=== PATIENT | male | born 1940 | race Caucasian/White ===

== ENCOUNTER → 2018-03-30 09:00 | Outpatient (CLI) | payer MEDICARE, BC, SELFPAY ==
--- NOTE | 2018-03-30 | DI.RAD.S_ITS ---
PROCEDURE: XR CHEST 2V INDICATIONS: PNEUMONIA TECHNIQUE: 2 views of the chest were acquired. COMPARISON: None. FINDINGS: Surgical changes and devices: None. Lungs and pleura: No pleural effusions or pneumothorax. Lungs are clear. Mediastinum: Mediastinal contours are normal. Heart size is normal. Bones and chest wall: No suspicious bony abnormalities. Soft tissues appear unremarkable. IMPRESSION: Pectus excavatum chest wall morphology. This blurs the right cardiac margin and shifts the heart slightly leftward. No acute disease. No pneumonia found. Dictated by: Maximiliano Cristobal M.D. on 03/30/2018 at 10:08 Approved by: Maximiliano Cristobal M.D. on 03/30/2018 at 10:08
== END ==
PROVIDERS: Visit Provider Internal Medicine
DX: J18.9 Pneumonia, unspecified organism (principal)
CPT/HCPCS: 71046

== ENCOUNTER → 2020-06-08 08:28 | Outpatient (CLI) | payer MEDICARE, BC, SELFPAY ==
[2020-06-09 03:08] LABS: COVID19 Sendout Not Detected (Not Detect)
== END ==
PROVIDERS: Visit Provider Physician Assistant
DX: Z01.812 Encounter for preprocedural laboratory examination (principal)
CPT/HCPCS: 87635

== ENCOUNTER → 2020-07-12 11:14 | Outpatient (CLI) | payer MEDICARE, BC, SELFPAY ==
--- NOTE | 2020-07-12 | DI.RAD.S_ITS ---
PROCEDURE: XR HIP W PEL IF DONE LT 2V INDICATIONS: LEFT HIP PAIN TECHNIQUE: AP pelvis with lateral view(s) of the left hip(s). COMPARISON: [facility], , PELVIS W UNILATERAL HIP LEFT, 11/24/2012, 11:12. FINDINGS: Bones: No fracture . Moderate bilateral hip joint degeneration, with slight interval progression on the left since 11/24/12. Scattered degenerative subchondral sclerosis and spurring. Bulky marginal osteophyte formation resulting in decreased femoral head-neck step-off bilaterally. Soft tissues: The visualized bowel gas pattern is normal. No suspicious soft tissue calcifications. IMPRESSION: Slight interval progression of left hip joint degeneration as detailed above. Dictated by: Kam Emmanuel M.D. on 07/12/2020 at 12:59 Approved by: Kam Emmanuel M.D. on 07/12/2020 at 13:01
== END ==
PROVIDERS: PCP Internal Medicine; Referring Provider Internal Medicine; Visit Provider Internal Medicine
DX: M25.552 Pain in left hip (principal); M16.0 Bilateral primary osteoarthritis of hip
CPT/HCPCS: 73502

== ENCOUNTER → 2021-03-06 14:36 | Outpatient (ROUT) | payer MEDICARE, BC, SELFPAY ==
[2021-03-06 16:47] LABS: Aspartate Aminotransferase 31 IU/L (17-59); BUN Creatinine Ratio 24.7 (6-22); Blood Urea Nitrogen 22 mg/dL (9-20); Calcium 9.2 mg/dL (8.4-10.2); Carbon Dioxide 23 mmol/L (22-32); Chloride 108 mmol/L (98-107); Cholesterol 123 mg/dL (140-199); Estimated Glomerular Filt Rate > 60.0 mL/min (>60); Glucose 114 mg/dL (80-110); HDL Cholesterol 49 mg/dL (40-60); HEMOLYSIS < 15 (0-50); LDL Cholesterol Calculated 62 mg/dL (<100); Potassium 4.4 mmol/L (3.4-5.1); Sodium 140 mmol/L (137-145); Triglycerides 59 mg/dL (35-150)
== END ==
PROVIDERS: PCP Internal Medicine; Visit Provider Internal Medicine
DX: E78.2 Mixed hyperlipidemia (principal); I10 Essential (primary) hypertension
CPT/HCPCS: 80048; 80061; 84450

== ENCOUNTER → 2022-12-31 15:03 | Outpatient (CLI) | payer MEDICARE, BC, OTHER, SELFPAY ==
--- NOTE | 2022-12-31 | DI.RAD.S_ITS ---
PROCEDURE: XR THORACIC SPINE 2V INDICATIONS: acute right-sided thoracic back pain TECHNIQUE: 3 views of the thoracic spine were acquired. COMPARISON: None. FINDINGS: Bones: There is mild vertebral body wedging approximately at T7. 12 pairs of ribs are noted, and appear intact where visualized. Degenerative disc space narrowing and small anterior osteophytes noted in the midthoracic spine Soft tissues: No paravertebral stripe thickening. IMPRESSION: Mild T7 anterior wedging may reflect compression fracture, uncertain age. Consider follow-up MR evaluation Approved by: Curt Castillo M.D. on 12/31/2022 at 19:15
== END ==
PROVIDERS: PCP Physician Assistant; Referring Provider Physician Assistant; Visit Provider Physician Assistant
DX: M54.6 Pain in thoracic spine (principal); M62.838 Other muscle spasm
CPT/HCPCS: 72070

== ENCOUNTER → 2023-01-13 15:21 | Outpatient (CLI) | payer MEDICARE, OTHER, SELFPAY ==
--- NOTE | 2023-01-13 | DI.MRI.S_ITS ---
PROCEDURE: MR THORACIC SPINE WO CON INDICATIONS: wedge compression fracture of t7-t8 vertebra TECHNIQUE: Noncontrast sagittal T1 spine echo and T2 fast spin echo, sagittal STIR, and T2 fast spin echo through the thoracic spine. COMPARISON: [facility], CR, XR THORACIC SPINE 2V, 12/31/2022, 15:09. FINDINGS: Image quality: Excellent. Alignment and Curvature: There is normal bony alignment. Bone Marrow: Marrow is of overall normal signal. Modic type I reactive endplate changes are present at T6-7. No compression deformities. No suspicious marrow edema. Spinal Cord: The visualized thoracic spinal cord demonstrates normal caliber throughout. There is limited characterization of the distal cervical spinal Cord which appears mildly deformed secondary to broad-based disc bulges on axial view. Paraspinous Soft Tissues: No paravertebral masses. Miscellaneous: On axial images, central canal and foramina appear widely patent at all scanned levels. There is diffuse intervertebral disc space narrowing and mild anterior osteophytosis throughout the thoracic spine. IMPRESSION: 1. No marrow edema or other findings to suggest acute or subacute compression deformity. 2. Reactive endplate changes at C6-7 as above. 3. Diffuse mild degenerative change of the thoracic spine. 4. Mild compression deformity of the distal cervical spinal cord which is poorly characterized on this limited view. If further characterization is warranted, MRI of the cervical spine could be used. Dictated by: Norma Patel M.D. on 01/13/2023 at 16:49 Approved by: Norma Patel M.D. on 01/13/2023 at 16:55
== END ==
PROVIDERS: PCP Physician Assistant; Referring Provider Physician Assistant; Visit Provider Physician Assistant
DX: S22.060A Wedge compression fracture of T7-T8 vertebra, initial encounter for closed fracture (principal); M47.814 Spondylosis without myelopathy or radiculopathy, thoracic region; X58.XXXA Exposure to other specified factors, initial encounter
CPT/HCPCS: 72146